=== PATIENT | female | born 1960 | race African-American/Black ===

== ENCOUNTER 2022-02-20 06:23 | Day surgery (SDC) | payer BC ==
[2022-02-16 17:40] VITALS: BMI 41.1
[2022-02-20] MEDS ORDERED: ROPIVACAINE HCL 0.5% 30ML VIAL ONE (06:50)
[2022-02-20] MEDS ORDERED: MIDAZOLAM HCL 2 MG/2 ML SINGLE DOSE VIAL ONE (06:50)
[2022-02-20] MEDS ORDERED: DEXAMETHASONE SOD PHOSPHATE 4 MG/1 ML VIAL ONE ×2 (06:51→09:01)
[2022-02-20] MEDS ORDERED: ONDANSETRON 4 MG/2 ML VIAL ONE ×2 (06:51→09:01)
[2022-02-20] MEDS ORDERED: EPINEPHrine 1:1,000 1,000 MCG/ML ML ONE (07:24)
[2022-02-20] MEDS ORDERED: SUCCINYLCHOLINE CHLORIDE 200 MG/10 ML SYRINGE ONE (07:32)
[2022-02-20] MEDS ORDERED: PROPOFOL 40 ML ONE (07:32)
[2022-02-20] MEDS ORDERED: ceFAZolin SODIUM 1 GM VIAL ONE (08:20)
[2022-02-20] MEDS ORDERED: ONDANSETRON 4 MG/2 ML VIAL IVPUSH PRN (09:27)
[2022-02-20] MEDS ORDERED: oxyCODONE HCL 5 MG TABLET PO PRN ×2 (09:27)
[2022-02-20] MEDS ORDERED: LACTATED RINGERS SOLUTION 1,000 ML IV SCH (09:30)
[2022-02-20] MEDS ORDERED: oxyCODONE HCL 5 MG TABLET ONE (10:45)
[2022-02-20 11:31] VITALS: RESP 18
[2022-02-20 11:39] VITALS: BP 131/81; PULSE 71; TEMP 98
== END 2022-02-20 12:15 | disposition home or self-care (01) ==
LOC: FASU 06:23
PROVIDERS: ATTEND Orthopaedic Surgery
PROC: 0RBJ4ZZ Excision of Right Shoulder Joint, Percutaneous Endoscopic Approach (ICD-10-PCS; 2022-02-20)
PROC: 0LQ14ZZ Repair Right Shoulder Tendon, Percutaneous Endoscopic Approach (ICD-10-PCS; principal; 2022-02-20 08:39)
PROC: 0PB94ZZ Excision of Right Clavicle, Percutaneous Endoscopic Approach (ICD-10-PCS; 2022-02-20 08:39)
DX: M75.101 Unspecified rotator cuff tear or rupture of right shoulder, not specified as traumatic (principal); M75.01 Adhesive capsulitis of right shoulder; M75.41 Impingement syndrome of right shoulder; M19.011 Primary osteoarthritis, right shoulder; S43.431D Superior glenoid labrum lesion of right shoulder, subsequent encounter; X58.XXXD Exposure to other specified factors, subsequent encounter
CPT/HCPCS: 94760; C1713